=== PATIENT | male | born 1995 | race Caucasian/White ===

== ENCOUNTER 2018-01-01 19:49 | Emergency (ER) | payer MEDICAID ==
--- NOTE | 2018-01-01 20:53 | ERPHSYRPT ---
- History of Present Illness Time Seen by Provider: 01/01/18 20:53 Historian: patient Exam Limitations: no limitations Patient Subjective Stated Complaint: PT IS ALERT AND ORIENTED. PT IS AMBULATORY. PT COMES IN WITH C/O UPPER LEFT ABD PAIN. BOWEL SOUNDS PRESENT. TENDER WITH PALPATATION IN LUQ AND LOWER LEFT BACK. PT DENIES N/V/D. PT STATES HE WAS JUST "WATCHING A MOVIE" WHEN THE PAIN STARTED AT ABOUT 1630 Triage Nursing Assessment: SEE ABOVE Physician History: 22 y/o white male, with no h/o abd surgeries, presents with 1 day h/o left flank pain and dysuria. pt denies cp, soa and denies abd pain. Timing/Duration: day(s) (1) Quality: sharpness, stabbing Abdominal Pain Onset Location: flank (left) Severity of Pain-Max: mild Severity of Pain-Current: mild Modifying Factors: Improves With: nothing (has not tried anything) Associated Symptoms: back, No diaphoresis, No diarrhea, No fever/chills, No loss of appetite, No nausea, No neck pain, No rash, No shortness of breath, No syncope, No testicular pain, No vomiting, No weakness Previous symptoms: no prior history Allergies/Adverse Reactions: banana Allergy (Verified 01/01/18 20:29) beet Allergy (Verified 01/01/18 20:29) lidocaine Allergy (Verified 01/01/18 20:29) loratadine Allergy (Verified 01/01/18 20:29) pseudoephedrine Allergy (Verified 01/01/18 20:29) soybean Allergy (Verified 01/01/18 20:29) Hx Tetanus, Diphtheria Vaccination/Date Given: Yes Immunizations Up to Date: Yes - Review of Systems Constitutional: No Symptoms Eyes: No Symptoms Ears, Nose, & Throat: No Symptoms Respiratory: No Symptoms Cardiac: No Symptoms Abdominal/Gastrointestinal: No Symptoms, No Abdominal Pain, No Nausea, No Vomiting, No Diarrhea Genitourinary Symptoms: Flank Pain (left), No Dysuria, No Frequency, No Hematuria, No Hesitancy Musculoskeletal: No Symptoms Skin: No Symptoms Neurological: No Symptoms, No Dizziness Psychological: No Symptoms, No Anxiety Endocrine: No Symptoms Hematologic/Lymphatic: No Symptoms Immunological/Allergic: No Symptoms All Other Systems: Reviewed and Negative - Past Medical History Pertinent Past Medical History: Yes Neurological History: No Pertinent History ENT History: No Pertinent History Cardiac History: No Pertinent History Respiratory History: Asthma Endocrine Medical History: No Pertinent History Musculoskeletal History: No Pertinent History GI Medical History: No Pertinent History History: No Pertinent History Psycho-Social History: Attention Deficit Disorder, Other Male Reproductive Disorders: No Pertinent History Other Medical History: ptsd, AUTISM - Past Surgical History Past Surgical History: No Neuro Surgical History: No Pertinent History Cardiac: No Pertinent History Respiratory: No Pertinent History Gastrointestinal: No Pertinent History Genitourinary: No Pertinent History Musculoskeletal: No Pertinent History Male Surgical History: No Pertinent History - Social History Smoking Status: Light tobacco smoker Drug Use: none - Nursing Vital Signs Nursing Vital Signs: Initial Vital Signs Temperature 97.8 F 01/01/18 19:50 Pulse Rate 100 H 01/01/18 19:50 Respiratory Rate 18 01/01/18 19:50 Blood Pressure 125/81 01/01/18 19:50 O2 Sat by Pulse Oximetry 98 01/01/18 19:50 Pain Scale Pain Intensity 10 - Physical Exam General Appearance: no apparent distress, alert, anxiety Eye Exam: PERRL/EOMI, eyes nml inspection Ears, Nose, Throat Exam: normal ENT inspection, moist mucous membranes Neck Exam: normal inspection, non-tender, supple, full range of motion Respiratory Exam: normal breath sounds, lungs clear, airway intact, No chest tenderness, No respiratory distress, No accessory muscle use, No rhonchi, No wheezing, No stridor Cardiovascular Exam: regular rate/rhythm, normal heart sounds, normal peripheral pulses Gastrointestinal/Abdomen Exam: soft, normal bowel sounds, No tenderness, No guarding, No rebound Rectal Exam: not done Back Exam: CVA tenderness (left), No normal inspection, No normal range of motion, No vertebral tenderness Extremity Exam: normal inspection, normal range of motion, pelvis stable Neurologic Exam: alert, oriented x 3, cooperative, performance makeup artist II-XII nml as tested Skin Exam: normal color, warm, dry Lymphatic Exam: adenopathy SpO2 Interpretation: normal SpO2: 98 Oxygen Delivery: Room Air - Course Nursing assessment & vital signs reviewed: Yes Ordered Tests: Active Orders 24 hr Category Date Time Status UA W/RFX UR CULTURE Stat Lab 01/01/18 21:59 Completed Lab/Rad Data: Laboratory Results 01/01/18 Range/Units 21:59 Urine Color YELLOW (YELLOW) Urine Appearance CLEAR (CLEAR) Urine pH 5.0 (5-6) Ur Specific [place] 1.014 (1.005-1.025) Urine Protein NEGATIVE (Negative) Urine Ketones NEGATIVE (NEGATIVE) Urine Blood NEGATIVE (0-5) Rick/ul Urine Nitrite NEGATIVE (NEGATIVE) Urine Bilirubin NEGATIVE (NEGATIVE) Urine Urobilinogen NEGATIVE (0-1) mg/dL Ur Leukocyte Esterase NEGATIVE (NEGATIVE) Urine WBC (Auto) 0-2 (0-5) /HPF Urine RBC (Auto) NONE (0-2) /HPF U Epithel Cells (Auto) NONE SEEN (FEW) /HPF Urine Mucus (Auto) SLIGHT (NEGATIVE) /HPF Urine Sperm (Auto) PRESENT (NEGATIVE) /HPF Urine Culture Reflexed NO (NO) Urine Glucose NEGATIVE (NEGATIVE) mg/dL - Progress Progress: unchanged Counseled pt/family regarding: lab results, diagnosis, need for follow-up - Departure Time of Disposition: 22:14 Departure Disposition: Home Clinical Impression: Back pain Condition: Stable Critical Care Time: No Referrals: REBECA CAMARILLO [Primary Care Provider] - Additional Instructions: drink plenty of fluids. use tylenol and ibuprofen for pain. follow up with primary doctor for persistent symptoms
[2018-01-01 22:06] LABS: Appearance CLEAR (CLEAR); Bilirubin NEGATIVE (NEGATIVE); Blood NEGATIVE Ery/ul (0-5); Glucose NEGATIVE (NEGATIVE); Ketones NEGATIVE (NEGATIVE); Leukocyte Esterase NEGATIVE (NEGATIVE); Nitrite NEGATIVE (NEGATIVE); Protein,Urine Dip NEGATIVE (Negative); Specific Gravity 1.014 (1.005-1.025); Urobilinogen NEGATIVE mg/dL (0-1)
[2018-01-01] MEDS ORDERED: TYLENOL 325 MG ONE (22:21)
[2018-01-01] MEDS ORDERED: MOTRIN 400 MG ONE (22:21)
[2018-01-01] MEDS: TYLENOL 325 MG PO STA (22:22)
[2018-01-01] MEDS: MOTRIN 400 MG PO ONE (22:22)
[2018-01-01 22:30] VITALS: BP 125/72
[2018-01-01 22:44] VITALS: PULSE 89; O2SAT 96
== END 2018-01-01 23:09 | disposition home or self-care (01) ==
LOC: ED 19:49
DX: M54.9 Dorsalgia, unspecified (principal); R10.12 Left upper quadrant pain; M54.5 Low back pain; R30.0 Dysuria; J45.909 Unspecified asthma, uncomplicated
CPT/HCPCS: 81001; 99284; A9270-GY